=== PATIENT | male | born 2000 | race Hispanic/Latino ===

== ENCOUNTER → 2021-05-15 11:09 | Outpatient (CLI) | payer OTHER, SELFPAY ==
[2021-05-15 20:04] LABS: COVID19 - ORCAS (NP or Nasal) POSITIVE (Negative)
== END ==
PROVIDERS: PCP Physician Assistant; Visit Provider Physician Assistant Medical
DX: U07.1 COVID-19 (principal)
CPT/HCPCS: U0003